=== PATIENT | female | born 1970 | race Caucasian/White ===

== ENCOUNTER 2017-01-17 21:43 | Emergency (ER) | payer MEDICAID ==
[~2017-01-17] VITALS: Ht 160 cm; Wt 67.3 kg
[~2017-01-17 21:43] MED LIST: ACET325T14 PO; ALBU18HF IH; AMOX875T PO; ERTA1VIA IV; ERYT500T17 PO; HYDR-3240 PO; HYDR2TAB29 PO; IBUP-1223 PO; SULF1TAB24 PO; percocet
[2017-01-17 22:27] LABS: HEMATOCRIT 41.6 % (34.6-47.8); HEMOGLOBIN 14.1 g/dL (11.7-16.4); WHITE BLOOD COUNT 9.4 x10^3/uL (3.4-10)
[2017-01-17] MEDS ORDERED: ALBUTEROL/IPRATROPIUM 2.5MG/0.5MG, 3 ML NPPB ONE (22:30)
[2017-01-17 22:39] LABS: BLOOD UREA NITROGEN 10 mg/dL (7-18)
[2017-01-17 22:43] LABS: IS PT STATUS REG ER OR PRE ER? YES
[2017-01-17] MEDS ORDERED: ONDANSETRON ODT 8 MG PO ONE (23:00)
[2017-01-17] MEDS ORDERED: OMEP-110 PO (23:10)
[2017-01-17] MEDS ORDERED: IBUPROFEN 200 MG TABLET PO ONE (23:30)
[2017-01-17 23:44] VITALS: BP 128/75
== END 2017-01-17 23:49 | disposition home or self-care (01) ==
LOC: ED 22:58
DX: J15.9 Unspecified bacterial pneumonia (principal)
CPT/HCPCS: 36415; 71020; 80048; 82040; 83880; 84484; 84703; 85025; 87081; 87880; 93005; 99285

== ENCOUNTER 2017-02-27 17:25 | Emergency (ER) | payer MEDICAID ==
[~2017-02-27] VITALS: Ht 162.6 cm; Wt 68.6 kg
[~2017-02-27 17:25] MED LIST changes: +OMEP-110 PO
[2017-02-27] MEDS ORDERED: ONDANSETRON ODT 4 MG PO ONE (19:00)
[2017-02-27] MEDS ORDERED: ONDANSETRON ODT 4 MG ONE (19:08)
[2017-02-27 20:27] VITALS: BP 136/82
== END 2017-02-27 20:31 | disposition home or self-care (01) ==
LOC: ED 20:08
DX: S29.011A Strain of muscle and tendon of front wall of thorax, initial encounter (principal); S29.012A Strain of muscle and tendon of back wall of thorax, initial encounter; G43.909 Migraine, unspecified, not intractable, without status migrainosus; X58.XXXA Exposure to other specified factors, initial encounter; Y93.89 Activity, other specified; Y92.89 Other specified places as the place of occurrence of the external cause; Y99.8 Other external cause status
CPT/HCPCS: 71046; 72072; 99284; Q0162

== ENCOUNTER 2017-10-27 22:51 | Inpatient (IN) | payer MEDICAID ==
[~2017-10-27] VITALS: Ht 162.6 cm; Wt 64.1 kg
[2017-10-28] MEDS ORDERED: FAMOTIDINE 20 MG/2 ML IVP ONE
[2017-10-28] MEDS ORDERED: MORPHINE SULFATE 4 MG/ML, 1ML IVPush PRN
[2017-10-28] MEDS ORDERED: ONDANSETRON ODT 4 MG PO ONE
[2017-10-28] MEDS ORDERED: ONDANSETRON ODT 4 MG ONE (00:05)
[2017-10-28] MEDS ORDERED: FAMOTIDINE 20 MG/2 ML ONE (00:06)
[2017-10-28] MEDS ORDERED: MORPHINE SULFATE 4 MG/ML, 1ML ONE (00:06)
[2017-10-28 00:12] LABS: MD NO; MEAN PLATELET VOLUME 8.3 fL (7.4-10.4)
[2017-10-28 00:21] LABS: BASOPHILS % (AUTO) 0 % (0-1); EOSINOPHILS # (AUTO) 0.18 x10^3/uL (0-0.4); EOSINOPHILS % (AUTO) 3 % (1-7); LYMPHOCYTES # (AUTO) 0.68 x10^3/uL (1-3.4); LYMPHOCYTES % (AUTO) 10 % (22-44); MEAN CORPUSCULAR HEMOGLOBIN 29.9 pg (27.0-34.8); MEAN CORPUSCULAR HGB CONC 34.3 g/dL (32.4-35.8); MEAN CORPUSCULAR VOLUME 87.1 fL (80-100); MONOCYTES # (AUTO) 0.38 x10^3/uL (0.2-0.8); MONOCYTES % (AUTO) 5 % (2-9); NEUTROPHILS # (AUTO) 5.91 x10^3/uL (1.8-6.8); NEUTROPHILS % (AUTO) 83 % (42-75); PLATELET COUNT 249 x10^3/uL (130-400); RED BLOOD COUNT 5.01 x10^6/uL (3.82-5.3); RED CELL DISTRIBUTION WIDTH 13.9 % (9.6-15.2)
[2017-10-28 00:28] LABS: ALANINE AMINOTRANSFERASE 26 U/L (12-78); ALBUMIN 3.7 g/dL (3.4-5.0); ANION GAP 7 mmol/L (5-15); CALCIUM 8.1 mg/dL (8.5-10.1); CHLORIDE 113 mmol/L (98-107); CREATININE 0.91 mg/dL (0.55-1.02)
[2017-10-28 00:33] LABS: ALKALINE PHOSPHATASE 78 U/L (45-117); BILIRUBIN,TOTAL 0.3 mg/dL (0.2-1.0); TOTAL PROTEIN 7.6 g/dL (6.4-8.2)
[2017-10-28 00:42] LABS: MICROSCOPIC INDICATED
[2017-10-28 00:50] LABS: CULTURE INDICATED? NO
[2017-10-28] MEDS ORDERED: OMNIPAQUE 350 MG/ML, 100ML BOTTLE ONE (01:47)
[2017-10-28] MEDS ORDERED: PROMETHAZINE 25 MG/ML, 1ML IM ONE (02:30)
[2017-10-28 04:05] VITALS: BP 98/58
[2017-10-28] MEDS ORDERED: ONDANSETRON 2MG/ML, 2ML IVPush PRN (05:00)
[2017-10-28] MEDS ORDERED: ONDANSETRON ODT 4 MG PO PRN (05:00)
[2017-10-28] MEDS ORDERED: ZOLPIDEM 5MG TABLET PO PRN (05:00)
[2017-10-28] MEDS ORDERED: LOPERAMIDE 2 MG CAPSULE PO PRN (05:00)
[2017-10-28] MEDS ORDERED: PROMETHAZINE 25 MG/ML, 1ML IM PRN (05:00)
[2017-10-28] MEDS ORDERED: hydrALAzine 20 MG/ML, 1ML IVPush PRN (05:00)
[2017-10-28] MEDS ORDERED: morphine SULFATE 10 MG/ML, 1ML IVPush PRN (05:00)
[2017-10-28] MEDS ORDERED: POTASSIUM CHLORIDE 20 MEQ TAB.ER.PRT PO ONE (06:00)
[2017-10-28] MEDS: SODIUM CHLORIDE 0.9% 1,000 ML IV SCH ×3 (06:02→21:42)
[2017-10-28] MEDS: ENOXAPARIN 40 MG/0.4 ML SQ SCH (06:03)
[2017-10-28] MEDS: PANTOPRAZOLE 40 MG IV IVPush SCH (06:03)
[2017-10-28 07:00] VITALS: BP 81/43
[2017-10-28] MEDS ORDERED: SODIUM CHLORIDE 0.9% 1,000ML IVBOLUS ONE ×3 (10:30→13:30)
[2017-10-28] MEDS: KETOROLAC 30 MG/1 ML IVPush PRN ×2 (10:57→20:07)
[2017-10-28 13:04] VITALS: BP 86/52
[2017-10-28 13:42] LABS: BASOPHILS # (AUTO) 0.01 x10^3/uL (0-0.1); BASOPHILS % (AUTO) 0 % (0-1); EOSINOPHILS # (AUTO) 0.14 x10^3/uL (0-0.4); EOSINOPHILS % (AUTO) 4 % (1-7); LYMPHOCYTES % (AUTO) 18 % (22-44); MD NO; MEAN CORPUSCULAR HEMOGLOBIN 29.3 pg (27.0-34.8); MEAN CORPUSCULAR HGB CONC 33.9 g/dL (32.4-35.8); MEAN CORPUSCULAR VOLUME 86.3 fL (80-100); MEAN PLATELET VOLUME 8.1 fL (7.4-10.4); MONOCYTES # (AUTO) 0.33 x10^3/uL (0.2-0.8); MONOCYTES % (AUTO) 10 % (2-9); NEUTROPHILS # (AUTO) 2.25 x10^3/uL (1.8-6.8); NEUTROPHILS % (AUTO) 68 % (42-75); PLATELET COUNT 197 x10^3/uL (130-400); RED BLOOD COUNT 4.05 x10^6/uL (3.82-5.3); RED CELL DISTRIBUTION WIDTH 14.3 % (9.6-15.2)
[2017-10-28 13:51] LABS: ALANINE AMINOTRANSFERASE 22 U/L (12-78); ALBUMIN 2.7 g/dL (3.4-5.0); ANION GAP 3 mmol/L (5-15); CALCIUM 6.7 mg/dL (8.5-10.1); CHLORIDE 117 mmol/L (98-107); CREATININE 0.78 mg/dL (0.55-1.02)
[2017-10-28 13:54] LABS: ALKALINE PHOSPHATASE 55 U/L (45-117); BILIRUBIN,TOTAL 0.3 mg/dL (0.2-1.0); TOTAL PROTEIN 5.6 g/dL (6.4-8.2)
[2017-10-28 14:18] VITALS: BP 103/63
[2017-10-28] MEDS ORDERED: SODIUM CHLORIDE 0.9% 1,000ML IVBOLUS PRN ×2 (15:00→19:00)
[2017-10-28 19:46] VITALS: BP 106/71
[2017-10-29] MEDS: KETOROLAC 30 MG/1 ML IVPush PRN ×3 (03:02→16:13)
[2017-10-29 03:30] VITALS: BP 100/53
[2017-10-29] MEDS: ACETAMINOPHEN 325 MG TABLET PO PRN ×2 (05:25→13:39)
[2017-10-29] MEDS: SODIUM CHLORIDE 0.9% 1,000 ML IV SCH ×3 (05:25→18:18)
[2017-10-29] MEDS: ENOXAPARIN 40 MG/0.4 ML SQ SCH (05:25)
[2017-10-29] MEDS: PANTOPRAZOLE 40 MG IV IVPush SCH (05:33)
[2017-10-29 05:43] LABS: CHLORIDE 114 mmol/L (98-107)
[2017-10-29 05:46] LABS: BASOPHILS # (AUTO) 0.01 x10^3/uL (0-0.1); BASOPHILS % (AUTO) 0 % (0-1); EOSINOPHILS # (AUTO) 0.16 x10^3/uL (0-0.4); EOSINOPHILS % (AUTO) 5 % (1-7); LYMPHOCYTES # (AUTO) 0.85 x10^3/uL (1-3.4); LYMPHOCYTES % (AUTO) 26 % (22-44); MD NO; MEAN CORPUSCULAR HEMOGLOBIN 29.1 pg (27.0-34.8); MEAN CORPUSCULAR HGB CONC 33.6 g/dL (32.4-35.8); MEAN CORPUSCULAR VOLUME 86.6 fL (80-100); MEAN PLATELET VOLUME 8.2 fL (7.4-10.4); MONOCYTES # (AUTO) 0.36 x10^3/uL (0.2-0.8); MONOCYTES % (AUTO) 11 % (2-9); NEUTROPHILS # (AUTO) 1.85 x10^3/uL (1.8-6.8); NEUTROPHILS % (AUTO) 57 % (42-75); PLATELET COUNT 191 x10^3/uL (130-400); RED BLOOD COUNT 4.05 x10^6/uL (3.82-5.3); RED CELL DISTRIBUTION WIDTH 14.2 % (9.6-15.2)
[2017-10-29 05:55] LABS: ALANINE AMINOTRANSFERASE 24 U/L (12-78); ALBUMIN 2.7 g/dL (3.4-5.0); ALKALINE PHOSPHATASE 50 U/L (45-117); ANION GAP 6 mmol/L (5-15); BILIRUBIN,TOTAL 0.3 mg/dL (0.2-1.0); CALCIUM 7.1 mg/dL (8.5-10.1); CREATININE 0.63 mg/dL (0.55-1.02); TOTAL PROTEIN 5.6 g/dL (6.4-8.2)
[2017-10-29] MEDS ORDERED: POTASSIUM PHOSPHATE 44 MEQ in SODIUM CHLORIDE 0.9% 500 ML IV ONE (07:30)
[2017-10-29 07:35] VITALS: BP 96/56
[2017-10-29 08:24] VITALS: BP 96/61
[2017-10-29] MEDS ORDERED: SODIUM CHLORIDE 0.9% 1,000ML IVBOLUS ONE (09:00)
[2017-10-29] MEDS ORDERED: OMNIPAQUE 350 MG/ML, 100ML BOTTLE ONE (13:26)
[2017-10-29 13:29] VITALS: BP 95/61
[2017-10-29 21:08] VITALS: BP 102/69
[2017-10-30 02:58] VITALS: BP 118/76
[2017-10-30] MEDS: ENOXAPARIN 40 MG/0.4 ML SQ SCH (05:29)
[2017-10-30] MEDS: SODIUM CHLORIDE 0.9% 1,000 ML IV SCH ×3 (05:29→18:50)
[2017-10-30 05:59] LABS: ALANINE AMINOTRANSFERASE 26 U/L (12-78); ANION GAP 10 mmol/L (5-15); CALCIUM 7.3 mg/dL (8.5-10.1); CHLORIDE 110 mmol/L (98-107)
[2017-10-30 06:02] LABS: ALKALINE PHOSPHATASE 54 U/L (45-117); BILIRUBIN,TOTAL 0.3 mg/dL (0.2-1.0); TOTAL PROTEIN 6.2 g/dL (6.4-8.2)
[2017-10-30 06:11] LABS: BASOPHILS # (AUTO) 0.01 x10^3/uL (0-0.1); BASOPHILS % (AUTO) 1 % (0-1); EOSINOPHILS # (AUTO) 0.14 x10^3/uL (0-0.4); EOSINOPHILS % (AUTO) 5 % (1-7); LYMPHOCYTES # (AUTO) 1.19 x10^3/uL (1-3.4); LYMPHOCYTES % (AUTO) 38 % (22-44); MD NO; MEAN CORPUSCULAR HEMOGLOBIN 28.7 pg (27.0-34.8); MEAN CORPUSCULAR HGB CONC 33.3 g/dL (32.4-35.8); MEAN CORPUSCULAR VOLUME 86.3 fL (80-100); MEAN PLATELET VOLUME 7.8 fL (7.4-10.4); MONOCYTES # (AUTO) 0.33 x10^3/uL (0.2-0.8); MONOCYTES % (AUTO) 10 % (2-9); NEUTROPHILS # (AUTO) 1.48 x10^3/uL (1.8-6.8); NEUTROPHILS % (AUTO) 47 % (42-75); PLATELET COUNT 236 x10^3/uL (130-400); RED BLOOD COUNT 4.35 x10^6/uL (3.82-5.3); RED CELL DISTRIBUTION WIDTH 13.8 % (9.6-15.2)
[2017-10-30] MEDS ORDERED: POTASSIUM CHLORIDE 20 MEQ TAB.ER.PRT PO ONE (09:30)
[2017-10-30] MEDS: PANTOPRAZOLE 40 MG IV IVPush SCH (10:36)
[2017-10-30 12:26] VITALS: BP 113/75
[2017-10-30 15:47] LABS: CLOSTRIDIUM DIFFICILE ANTIGEN NEGATIVE; CLOSTRIDIUM DIFFICILE TOXIN NEGATIVE (Negative)
[2017-10-30 19:45] VITALS: BP 119/75
[2017-10-31 02:22] VITALS: BP 109/69
[2017-10-31] MEDS: SODIUM CHLORIDE 0.9% 1,000 ML IV SCH (02:30)
[2017-10-31] MEDS: ENOXAPARIN 40 MG/0.4 ML SQ SCH (05:25)
[2017-10-31 05:49] LABS: BASOPHILS # (AUTO) 0.02 x10^3/uL (0-0.1); BASOPHILS % (AUTO) 1 % (0-1); EOSINOPHILS # (AUTO) 0.21 x10^3/uL (0-0.4); EOSINOPHILS % (AUTO) 5 % (1-7); LYMPHOCYTES # (AUTO) 1.43 x10^3/uL (1-3.4); LYMPHOCYTES % (AUTO) 37 % (22-44); MD NO; MEAN CORPUSCULAR HEMOGLOBIN 29.3 pg (27.0-34.8); MEAN CORPUSCULAR HGB CONC 34.1 g/dL (32.4-35.8); MEAN CORPUSCULAR VOLUME 85.8 fL (80-100); MEAN PLATELET VOLUME 7.5 fL (7.4-10.4); MONOCYTES % (AUTO) 8 % (2-9); NEUTROPHILS # (AUTO) 1.87 x10^3/uL (1.8-6.8); NEUTROPHILS % (AUTO) 49 % (42-75); PLATELET COUNT 255 x10^3/uL (130-400); RED BLOOD COUNT 4.43 x10^6/uL (3.82-5.3); RED CELL DISTRIBUTION WIDTH 14.1 % (9.6-15.2)
[2017-10-31 06:00] LABS: ANION GAP 8 mmol/L (5-15); CALCIUM 7.6 mg/dL (8.5-10.1); CHLORIDE 111 mmol/L (98-107); CREATININE 0.69 mg/dL (0.55-1.02)
[2017-10-31 06:56] VITALS: BP 105/66
[2017-10-31] MEDS: PANTOPRAZOLE 40 MG IV IVPush SCH (07:40)
[2017-10-31 12:33] VITALS: BP 120/82
== END 2017-10-31 13:10 | disposition home or self-care (01) | DRG 392 ==
LOC: ED 23:59 → 4NOR 10-28 02:54 → ED 10-28 04:08 → DCLOUNGE 10-31 12:55
PROVIDERS: ADMIT Hospitalist; ATTEND Hospitalist
PROC: 0T9B70Z Drainage of Bladder with Drainage Device, Via Natural or Artificial Opening (ICD-10-PCS; principal; 2017-10-28)
DX: A08.4 Viral intestinal infection, unspecified (principal); N13.30 Unspecified hydronephrosis; E86.0 Dehydration; E87.6 Hypokalemia; N32.89 Other specified disorders of bladder; D72.819 Decreased white blood cell count, unspecified; E86.9 Volume depletion, unspecified; Z90.49 Acquired absence of other specified parts of digestive tract; Z88.8 Allergy status to other drugs, medicaments and biological substances
CPT/HCPCS: 36415; 87046; 99285; S0028; 74177; 80048; 80053; 81001; 83690; 83735; 84100; 84703; 85025; 87324; 89055; 96372; 96374; 96375; G0378; J1650; J1885; J2550; Q0162; Q9967; C9113; J2270; J7030; J7040

== ENCOUNTER 2018-02-14 21:34 | Emergency (ER) | payer MEDICAID ==
[~2018-02-14] VITALS: Ht 162.6 cm; Wt 70.3 kg
[2018-02-14 21:39] VITALS: BP 136/62
[2018-02-14] MEDS ORDERED: ALBU18HF INH (21:51)
[2018-02-14] MEDS ORDERED: IBUP-1223 PO (21:51)
[2018-02-14] MEDS ORDERED: ALBUTEROL/IPRATROPIUM 2.5MG/0.5MG, 3 ML NPPB ONE (22:00)
--- NOTE | 2018-02-14 22:02 | NUR ---
REPORT TO VANGIE OLIVAS.
[2018-02-14] MEDS ORDERED: ALBUTEROL/IPRATROPIUM 2.5MG/0.5MG, 3 ML ONE (22:14)
== END 2018-02-14 23:08 | disposition home or self-care (01) ==
LOC: ED 22:30
DX: J20.8 Acute bronchitis due to other specified organisms (principal); G43.909 Migraine, unspecified, not intractable, without status migrainosus; Z90.89 Acquired absence of other organs; Z98.890 Other specified postprocedural states; Z87.19 Personal history of other diseases of the digestive system; Z87.01 Personal history of pneumonia (recurrent)
CPT/HCPCS: 71046; 94640; 99283; J7512; J7620

== ENCOUNTER 2018-02-18 22:16 | Emergency (ER) | payer MEDICAID ==
[~2018-02-18] VITALS: Ht 162.6 cm; Wt 66.4 kg
[~2018-02-18 22:16] MED LIST changes: +ALBU18HF INH
[2018-02-18] MEDS ORDERED: ALBUTEROL/IPRATROPIUM 2.5MG/0.5MG, 3 ML NPPB ONE (22:30)
--- NOTE | 2018-02-18 22:40 | NUR ---
PT. RESTING ON GURNEY WITH CONSTANT COUGH NOTED. PT. AWAITING BREATHING TX BY RT. PT. TO X-RAY VIA GURNEY AT THIS TIME. WILL ASSESS FURTHER UPON RETURN.
[2018-02-18] MEDS ORDERED: ALBUTEROL/IPRATROPIUM 2.5MG/0.5MG, 3 ML ONE (22:49)
--- NOTE | 2018-02-18 22:53 | NUR ---
RT AT BS/ TECH AT BS FOR EKG.
[2018-02-18] MEDS ORDERED: ACETAMINOPHEN 500 MG TABLET ONE (23:15)
[2018-02-18] MEDS ORDERED: AZITHROMYCIN 500 MG TABLET PO ONE (23:30)
[2018-02-18] MEDS ORDERED: CEFTRIAXONE PMX 1GM/50ML 50 ML IV ONE (23:30)
[2018-02-18] MEDS ORDERED: ACETAMINOPHEN 500 MG TABLET PO ONE (23:30)
[2018-02-18 23:34] LABS: BASOPHILS # (AUTO) 0.02 x10^3/uL (0-0.1); BASOPHILS % (AUTO) 0 % (0-1); EOSINOPHILS # (AUTO) 0.09 x10^3/uL (0-0.4); EOSINOPHILS % (AUTO) 1 % (1-7); LYMPHOCYTES # (AUTO) 0.85 x10^3/uL (1-3.4); LYMPHOCYTES % (AUTO) 9 % (22-44); MD NO; MEAN CORPUSCULAR HEMOGLOBIN 29.3 pg (27.0-34.8); MEAN CORPUSCULAR HGB CONC 33.9 g/dL (32.4-35.8); MEAN CORPUSCULAR VOLUME 86.6 fL (80-100); MEAN PLATELET VOLUME 7.7 fL (7.4-10.4); MONOCYTES # (AUTO) 0.24 x10^3/uL (0.2-0.8); MONOCYTES % (AUTO) 3 % (2-9); NEUTROPHILS % (AUTO) 87 % (42-75); PLATELET COUNT 266 x10^3/uL (130-400); RED CELL DISTRIBUTION WIDTH 13.9 % (9.6-15.2)
[2018-02-18 23:45] LABS: RAPID INFLUENZA A Negative (Negative); RAPID INFLUENZA B Negative (Negative)
[2018-02-18 23:45] LABS: ALBUMIN 3.4 g/dL (3.4-5.0); ANION GAP 6 mmol/L (5-15); CALCIUM 7.9 mg/dL (8.5-10.1); CHLORIDE 107 mmol/L (98-107); CREATININE 0.85 mg/dL (0.55-1.02)
[2018-02-18] MEDS ORDERED: CEFTRIAXONE PMX 1GM/50ML 50 ML ONE (23:54)
[2018-02-18] MEDS ORDERED: AZITHROMYCIN 250 MG TABLET ONE (23:54)
--- NOTE | 2018-02-19 00:06 | NUR ---
PT. IS ON ALL MONITORS. IV WAS ESTABLISHED AND IV ABX INFUSING. 2 SETS OF BLOOD CULTURES WERE COMPLETED PRIOR TO THIS. KNOT PICKER CLOTH #[id number] USED TO DISCUSS PLAN WITH PT. ALL QUESTIONS ANSWERED. PT. SPEAKING ON CELL PHONE WITH HER CHILD. DENIES NEEDS. ALL SAFETY MEASUERS OBSERVED. CALL LIGHT IN REACH.
[2018-02-19 01:00] VITALS: BP 106/65
== END 2018-02-19 01:02 | disposition home or self-care (01) ==
LOC: ED 02-19 00:57
DX: J45.41 Moderate persistent asthma with (acute) exacerbation (principal); J18.1 Lobar pneumonia, unspecified organism; G43.909 Migraine, unspecified, not intractable, without status migrainosus; Z90.89 Acquired absence of other organs; Z87.19 Personal history of other diseases of the digestive system; Z88.8 Allergy status to other drugs, medicaments and biological substances; Z98.890 Other specified postprocedural states
CPT/HCPCS: 36415; 71046; 80048; 82040; 85025; 87040; 87400; 93005; 94640; 96365; 99284; J0696; J7512

== ENCOUNTER 2018-05-08 22:38 | Emergency (ER) | payer MEDICAID, OTHER ==
[~2018-05-08] VITALS: Ht 162.6 cm; Wt 67.0 kg
--- NOTE | 2018-05-08 23:12 | NUR ---
DR. CHAVEZ HAS BEEN IN TO EVAL. THIS RN IN TO START IV AND ADMIN PAIN MEDS. PT. REQUESTING BR. BS COMMODE AND PT. DAUGHTER ASSISTING PT. TO COMMODE.
[2018-05-08] MEDS ORDERED: HYDROmorphone 1 MG/ML, 1ML AMP ONE (23:14)
[2018-05-08] MEDS ORDERED: SODIUM CHLORIDE FLUSH 10ML SYR IVF ONE (23:30)
[2018-05-08] MEDS ORDERED: HYDROmorphone 2 MG/ML, 1ML IVPush PRN (23:30)
[2018-05-08 23:35] LABS: BASOPHILS # (AUTO) 0.03 x10^3/uL (0-0.1); BASOPHILS % (AUTO) 0 % (0-1); EOSINOPHILS # (AUTO) 0.26 x10^3/uL (0-0.4); EOSINOPHILS % (AUTO) 4 % (1-7); LYMPHOCYTES # (AUTO) 1.87 x10^3/uL (1-3.4); LYMPHOCYTES % (AUTO) 27 % (22-44); MD NO; MEAN CORPUSCULAR HEMOGLOBIN 28.3 pg (27.0-34.8); MEAN CORPUSCULAR HGB CONC 32.8 g/dL (32.4-35.8); MEAN CORPUSCULAR VOLUME 86.2 fL (80-100); MEAN PLATELET VOLUME 8.1 fL (7.4-10.4); MONOCYTES # (AUTO) 0.39 x10^3/uL (0.2-0.8); MONOCYTES % (AUTO) 6 % (2-9); NEUTROPHILS # (AUTO) 4.26 x10^3/uL (1.8-6.8); NEUTROPHILS % (AUTO) 63 % (42-75); PLATELET COUNT 308 x10^3/uL (130-400); RED BLOOD COUNT 4.82 x10^6/uL (3.82-5.3); RED CELL DISTRIBUTION WIDTH 14.1 % (9.6-15.2)
[2018-05-08 23:45] LABS: ANION GAP 7 mmol/L (5-15); CALCIUM 8.2 mg/dL (8.5-10.1); CHLORIDE 110 mmol/L (98-107); CREATININE 0.73 mg/dL (0.55-1.02)
--- NOTE | 2018-05-09 00:16 | NUR ---
PT. RESTING ON GURNEY WITH EYES CLOSED. EVEN, NON-LABORED RESPIRATIONS, VS UPDATED. PT. FAMILY STATES "WHEN SHE WAKES UP SHE SAYS SHE HAS NO PAIN ANYMORE". CALL LIGHT REMAINS IN REACH. ALL MONITORS IN PLACE. ALL SAFETY MEASUERS MAINTAINED. AWAITING US READ.
--- NOTE | 2018-05-09 01:24 | NUR ---
DR. CHAVEZ AT TO DISCUSS POC.
[2018-05-09 02:03] VITALS: BP 112/62
[2018-05-09] MEDS ORDERED: ONDANSETRON ODT 4 MG ONE (02:24)
--- NOTE | 2018-05-09 02:34 | NUR ---
PT. WAS ABLE TO FULLY DRESS SELF; STARTED VOMITING WHEN ATTEMPTING TO D/C. VERBAL ORDER FROM DR. CHAVEZ FOR ODT ZOFRAN 4MG AT 0225; ADMIN AT THAT TIME.
[2018-05-09] MEDS ORDERED: ONDANSETRON ODT 4 MG PO ONE (03:00)
== END 2018-05-09 02:53 | disposition home or self-care (01) ==
LOC: ED 05-09 00:33
DX: L76.32 Postprocedural hematoma of skin and subcutaneous tissue following other procedure (principal); G43.909 Migraine, unspecified, not intractable, without status migrainosus; J45.909 Unspecified asthma, uncomplicated
CPT/HCPCS: 36415; 76642; 80048; 82040; 85025; 96374; 99284; J1170; 76641

== ENCOUNTER 2019-03-02 14:25 | Emergency (ER) | payer MEDICAID ==
[~2019-03-02] VITALS: Ht 162.6 cm; Wt 67.4 kg
[2019-03-02] MEDS ORDERED: PROMETHAZINE 25 MG/ML, 1ML ONE (14:54)
[2019-03-02] MEDS ORDERED: SODIUM CHLORIDE 0.9% 1,000ML IVBOLUS ONE (15:00)
[2019-03-02] MEDS ORDERED: PROMETHAZINE 25 MG/ML, 1ML IM ONE (15:00)
[2019-03-02] MEDS ORDERED: SODIUM CHLORIDE FLUSH 10ML SYR IVF ONE (15:00)
[2019-03-02] MEDS ORDERED: MECLIZINE CHEWABLE 25 MG TAB PO ONE ×2 (15:00→17:30)
--- NOTE | 2019-03-02 15:20 | NUR ---
UPON ARRIVAL TO ROOM PT WRETCHING AND VOMITING. MD AT BEDSIDE. ORDERS GIVEN AND PT RECEIVED MEDS FOR SAME WITH IV FLUIDS INFUSING NOTED ON MAR
[2019-03-02 15:36] LABS: BASOPHILS # (AUTO) 0.03 x10^3/uL (0-0.1); BASOPHILS % (AUTO) 0 % (0-1); EOSINOPHILS # (AUTO) 0.03 x10^3/uL (0-0.4); EOSINOPHILS % (AUTO) 0 % (1-7); LYMPHOCYTES # (AUTO) 1.32 x10^3/uL (1-3.4); LYMPHOCYTES % (AUTO) 12 % (22-44); MD NO; MEAN CORPUSCULAR HEMOGLOBIN 28.8 pg (27.0-34.8); MEAN CORPUSCULAR HGB CONC 33.3 g/dL (32.4-35.8); MEAN CORPUSCULAR VOLUME 86.7 fL (80-100); MEAN PLATELET VOLUME 8.3 fL (7.4-10.4); MONOCYTES # (AUTO) 0.36 x10^3/uL (0.2-0.8); MONOCYTES % (AUTO) 3 % (2-9); NEUTROPHILS # (AUTO) 9.11 x10^3/uL (1.8-6.8); NEUTROPHILS % (AUTO) 84 % (42-75); PLATELET COUNT 311 x10^3/uL (130-400); RED BLOOD COUNT 5.05 x10^6/uL (3.82-5.3); RED CELL DISTRIBUTION WIDTH 13.8 % (9.6-15.2)
[2019-03-02 15:45] LABS: ALANINE AMINOTRANSFERASE 21 U/L (12-78); ALBUMIN 3.7 g/dL (3.4-5.0); ANION GAP 10 mmol/L (5-15); CALCIUM 7.8 mg/dL (8.5-10.1); CHLORIDE 105 mmol/L (98-107); CREATININE 0.77 mg/dL (0.55-1.02)
[2019-03-02 15:50] LABS: ALKALINE PHOSPHATASE 79 U/L (45-117); BILIRUBIN,TOTAL 0.2 mg/dL (0.2-1.0); TOTAL PROTEIN 7.6 g/dL (6.4-8.2)
--- NOTE | 2019-03-02 16:00 | NUR ---
AMBULATED TO BATHROOM WITH ASSISTANCE OF RN. PT FEELING DIZZY AND UNSTEADY ON FEET.
[2019-03-02] MEDS ORDERED: MECLIZINE CHEWABLE 25 MG TAB ONE ×2 (16:03→17:41)
[2019-03-02 16:11] LABS: MICROSCOPIC AUTO
--- NOTE | 2019-03-02 16:11 | NUR ---
NO VOMITING SINCE MEDICATED FOR SAME. GIVEN MECLIZINE NOTED ON APR. PT RESTING WITH EYES CLOSED
[2019-03-02 16:17] LABS: AMPHETAMINE SCREEN, URINE Negative (Negative); BARBITURATE SCREEN, URINE Negative (Negative); BENZODIAZEPINE SCREEN, URINE Negative (Negative); CANNABINOID SCREEN, URINE Negative (Negative); COCAINE SCREEN, URINE Negative (Negative); METHADONE SCREEN, URINE Negative (Negative); OPIATE SCREEN, URINE Negative (Negative)
[2019-03-02 16:21] LABS: CULTURE INDICATED? NO
--- NOTE | 2019-03-02 17:40 | NUR ---
RE-EVAL WITH DISCUSSION ABOUT POC. PT TO BE RE-MEDICATED WITH MECLIZINE AND PT TO BE DISCHARGED HOME
--- NOTE | 2019-03-02 18:26 | NUR ---
RESTING WITH EYES CLOSED WHILE AWAITING RIDE
--- NOTE | 2019-03-02 19:01 | NUR ---
REPORT TO ANN OLIVAS
--- NOTE | 2019-03-02 19:02 | NUR ---
Assumed care of pt. Pt resting on gurted. Awaiting pt's daughter to pick her up for d/c.
[2019-03-02 20:00] VITALS: BP 128/78
--- NOTE | 2019-03-02 20:00 | NUR ---
Pt dc'd to self care. Pt alert and in NAD. Pt and family educated on prescriptions, follow-up, home care and S/Sx to return. Pt and family VU. Pt wheeled out of ER.
== END 2019-03-02 20:02 | disposition home or self-care (01) ==
LOC: ED 15:15
DX: H69.82 Other specified disorders of Eustachian tube, left ear (principal); R11.2 Nausea with vomiting, unspecified; H81.392 Other peripheral vertigo, left ear; H83.02 Labyrinthitis, left ear; J45.909 Unspecified asthma, uncomplicated
CPT/HCPCS: 36415; 80053; 80307; 81001; 83690; 84703; 85025; 93005; 96360; 96372; 99284; J2550; J7030

== ENCOUNTER 2020-01-01 22:03 | Emergency (ER) | payer MEDICAID ==
[~2020-01-01] VITALS: Ht 162.6 cm; Wt 69.6 kg
--- NOTE | 2020-01-01 23:44 | NUR ---
DIVISION PLANT ENGINEER: PT FROM LOBBY TO ROOM AT THIS TIME.
--- NOTE | 2020-01-01 23:49 | NUR ---
PATIENT WALKED BACK FROM LOBBY WITH CHIEF C/O BACK PAIN X2 WEEKS, AND CHEST PAIN THAT STARTED LAST NIGHT. PATIENT C/O CONGESTION AND THROAT PAIN WELL. PATIENT DENIES FEVER, DENIES DIARRHEA, BUT ENDORSES VOMITING. NO SIGNS OF ACUTE DISTRESS, CONNECTED TO MANAGER OF MANUFACTURING, CALL LIGHT WITHIN REACH, WARM BLANKET PROVIDED.
[2020-01-01 23:57] LABS: BASOPHILS % (AUTO) 1 % (0-1); EOSINOPHILS % (AUTO) 2 % (1-7); LYMPHOCYTES % (AUTO) 15 % (22-44); MEAN CORPUSCULAR HEMOGLOBIN 28.8 pg (27.0-34.8); MEAN CORPUSCULAR HGB CONC 33.3 g/dL (32.4-35.8); MONOCYTES % (AUTO) 8 % (2-9); NEUTROPHILS % (AUTO) 75 % (42-75); PLATELET COUNT 227 x10^3/uL (130-400); RED BLOOD COUNT 4.69 x10^6/uL (3.82-5.3); RED CELL DISTRIBUTION WIDTH 14.2 % (9.6-15.2)
[2020-01-01 23:58] LABS: MD NO
[2020-01-02 00:01] LABS: ALBUMIN 3.7 g/dL (3.4-5.0); ANION GAP 5 mmol/L (5-15); CALCIUM 8.4 mg/dL (8.5-10.1); CHLORIDE 105 mmol/L (98-107)
[2020-01-02 00:06] LABS: CREATININE 0.75 mg/dL (0.55-1.02); TROPONIN I < 0.015 ng/mL (0.000-0.045)
[2020-01-02 00:54] VITALS: BP 103/51
[2020-01-02] MEDS ORDERED: AZITHROMYCIN 500 MG TABLET PO ONE (01:30)
[2020-01-02] MEDS ORDERED: AZITHROMYCIN 250 MG TABLET ONE (01:31)
[2020-01-02] MEDS ORDERED: AZITHROMYCIN 500 MG TABLET ONE (01:37)
[2020-01-02] MEDS ORDERED: ACETAMINOPHEN 500 MG TABLET ONE (01:38)
[2020-01-02] MEDS ORDERED: ACETAMINOPHEN 500 MG TABLET PO ONE (02:00)
== END 2020-01-02 02:11 | disposition home or self-care (01) ==
LOC: ED 22:33
DX: U07.1 COVID-19 (principal); J06.9 Acute upper respiratory infection, unspecified; J18.9 Pneumonia, unspecified organism; R09.81 Nasal congestion; J02.9 Acute pharyngitis, unspecified; R07.89 Other chest pain; R05 Cough; M54.9 Dorsalgia, unspecified; J45.909 Unspecified asthma, uncomplicated; G43.909 Migraine, unspecified, not intractable, without status migrainosus
CPT/HCPCS: 36415; 71045; 80048; 82040; 84484; 85025; 87635; 93005; 99285

== ENCOUNTER 2020-06-02 20:42 | Emergency (ER) | payer MEDICAID ==
[~2020-06-02] VITALS: Ht 162.6 cm; Wt 70.9 kg
[~2020-06-02 20:42] MED LIST changes: +HYDR-2214 PO; -HYDR-3240 PO
[2020-06-02 20:43] VITALS: BP 167/68
[2020-06-02] MEDS ORDERED: METHOCARBAMOL 750 MG TABLET ONE (21:10)
[2020-06-02] MEDS ORDERED: ACETAMINOPHEN 500 MG TABLET ONE (21:11)
[2020-06-02] MEDS ORDERED: ACETAMINOPHEN 500 MG TABLET PO ONE (21:30)
[2020-06-02] MEDS ORDERED: METHOCARBAMOL 750 MG TABLET PO ONE (21:30)
--- NOTE | 2020-06-02 21:37 | NUR ---
PT BROUGHT TO ROOM VIA WC, AND C/O PAIN TO LEFT FEMORAL AREA OF LEG. PT STATES IT STARTED IN HER CALVES AND HAS PROGRESSED TO HER THIGHS. PT IN [facility], ON CR MONITOR, AND U/S OF HER LEGS DONE. PT TOLERATED WELL, AND TOOK PAIN MEDS ORDERED BY , WITHOUT ISSUE. SEE EMAR.
--- NOTE | 2020-06-02 22:34 | NUR ---
F/U AND D/C INSTRUCTIONS GIVEN TO PT AND SHE V/U. PT AMBULATORY AND D/C'D WITHOUT INCIDENT.
== END 2020-06-02 22:36 | disposition home or self-care (01) ==
LOC: ED 21:12
DX: M79.662 Pain in left lower leg (principal); M79.652 Pain in left thigh; G43.909 Migraine, unspecified, not intractable, without status migrainosus; J45.909 Unspecified asthma, uncomplicated; Z90.89 Acquired absence of other organs
CPT/HCPCS: 99284